=== PATIENT | male | born 1985 | race Caucasian/White ===

== ENCOUNTER 2022-09-14 14:01 | Emergency (ER) | payer OTHER, SELFPAY ==
[2022-09-14 14:05] VITALS: PULSE 85; RESP 16; TEMP 36.5; O2SAT 98
[2022-09-14 14:34] LABS: Add Manual Diff / Slide Review NO; Basophils Absolute Auto 0 /uL (0-100); Basophils Percent Auto 0.6 % (0-2); Eosinophils Absolute Auto 0 /uL (0-450); Eosinophils Percent Auto 0.6 % (2-4); Hemoglobin 14.6 g/dL (13.5-17.5); Lymphocytes Absolute Auto 1300 /uL (1100-4500); Lymphocytes Percent Auto 16.1 % (25-40); Mean Corpuscular HGB Conc 34.8 % (30-36); Mean Corpuscular Hemoglobin 30.7 PG (26-34); Monocytes Absolute Auto 700 /uL (0-900); Monocytes Percent Auto 8.5 % (3-14); Neutrophils Absolute Auto 5800 /uL (1500-7000); Neutrophils Percent Auto 74.2 % (50-75); Platelet Count 230 X10^3/uL (150-400); Red Blood Cell Count 4.77 X10^6/uL (4.5-5.9); Red Cell Distribution Width 13.3 % (11.6-14.8); White Blood Cell Count 7.8 X10^3/uL (4.5-11.0)
[2022-09-14 14:45] LABS: Alanine Aminotransferase 31 IU/L (<50); Albumin 4.8 g/dL (3.5-5.0); Albumin Globulin Ratio 1.3 (1.0-2.8); Alkaline Phosphatase 57 U/L (38-126); Aspartate Aminotransferase 35 IU/L (17-59); Blood Urea Nitrogen 15 mg/dL (9-20); Calcium 9.4 mg/dL (8.4-10.2); Carbon Dioxide 26 mmol/L (22-32); Chloride 102 mmol/L (98-107); Estimated Glomerular Filt Rate > 60 mL/min (>60); Globulin 3.6 g/dL (1.7-4.1); Glucose 95 mg/dL (70-100); HEMOLYSIS 16 (0-50); Lipase 82 U/L (23-300); Potassium 4.3 mmol/L (3.4-5.1); Sodium 138 mmol/L (137-145); Total Protein 8.4 g/dL (6.3-8.2)
[2022-09-14 15:50] LABS: Bacteria Urine None Seen; Culture Indicated Urine Cult Not Indicated; RBC Urine 1-5/HPF (0-5/HPF); WBC Urine None Seen (0-5/HPF)
--- NOTE | 2022-09-14 17:00 | DI.CT.S_ITS ---
PROCEDURE: CT KIDNEY URETER BLADDER (KUB) INDICATIONS: L flank pain eval for stone TECHNIQUE: Axial sections were acquired from the lung bases to the pubic symphysis. Coronal and sagittal reformats were performed. For radiation dose reduction, the following was used: automated exposure control, adjustment of mA and/or kV according to patient size. COMPARISON: The comparison exams may be incomplete at the time of preliminary interpretation due to PACS issues. FINDINGS: Image quality: Excellent. Lung bases: Unremarkable. Small hiatal hernia. Heart: No significant findings. URINARY: Right Kidney: There is a 1 mm nonobstructive stone in No stones or hydronephrosis. Right Ureter: No hydroureter. Left Kidney: No stones or hydronephrosis. There is a cortical scar in left kidney. Left Ureter: No hydroureter. Bladder: Normal wall thickness. No stones. ABDOMEN: Liver: Normal in size. Low-density nodules in liver are most likely cysts or hemangiomas. Gallbladder: Unremarkable. Biliary ducts: Unremarkable. Pancreas: Unremarkable. Spleen: Unremarkable. Adrenal Glands: Unremarkable. Stomach and Bowel: Stomach, small bowel loops, and colon are unremarkable. Peritoneum: No abnormal intraperitoneal fluid. No free air. Ventral Wall: No hernia. Abdominal Nodes: No enlarged retroperitoneal or mesenteric lymph nodes. Vessels: Aorta and inferior vena cava are normal in size. PELVIS: Pelvic Organs: Prostate is prominent in size. Pelvic Nodes: Unremarkable. Miscellaneous: No inguinal hernias are seen. Bones: Unremarkable. IMPRESSION: 1. No left renal stone or hydronephrosis. There is a cortical scar in left kidney. 2. A 1 mm nonobstructive stone in right kidney. No right renal hydronephrosis. 3. Suspect multiple hepatic cysts or hemangiomas. 4. Small hiatal hernia. The preliminary result was communicated to Dr. Dodge. Dictated by: Francy Lucia M.D. on 09/14/2022 at 17:47 Approved by: Francy Lucia M.D. on 09/15/2022 at 11:09
--- NOTE | 2022-09-14 17:00 | ED.GENADULT ---
HPI - General Adult General Chief complaint: Abdominal Pain Stated complaint: pain lt kidney feels like kidney stone Time Seen by Provider: 09/14/22 16:50 Source: patient Mode of arrival: Ambulatory History of Present Illness HPI narrative: Patient is a 37-year-old male. Has had a kidney stone in the past. This morning he started to have pain in his left flank that he states feels similar to his prior kidney stone but not as bad as what it has been. He did pass his prior stone on his own. He can not remember if he had a CT scan to definitively diagnose this. He denies any fevers. No nausea vomiting. No pain with urination. No skin rashes. Has not tried anything for his symptoms prior to arrival. Related Data Allergies Allergy/AdvReac Type Severity Reaction Status Date / Time No Known Drug Allergies Allergy Verified 09/14/22 14:08 Review of Systems Constitutional Constitutional: Reports system reviewed and no additional complaints, except as documented Cardiovascular Cardiovascular: Reports system reviewed and no additional complaints, except as documented Respiratory Respiratory: Reports system reviewed and no additional complaints, except as documented Gastrointestinal Gastrointestinal: Reports abdominal pain, Denies nausea and Denies vomiting Genitourinary Genitourinary: Reports system reviewed and no additional complaints, except as documented Integumentary/Breasts Skin/Breast: Reports system reviewed and no additional complaints, except as documented Patient History Medical History Kidney stones Social History lives independently: Yes Exam Initial Vital Signs Initial Vital Signs: Vital Signs Temperature 97.7 F 09/14/22 14:05 Pulse Rate 85 09/14/22 14:05 Respiratory Rate 16 09/14/22 14:05 Pulse Oximetry 98 09/14/22 14:05 Oxygen Delivery Method 09/14/22 14:05 HENMT Head: normal to inspection and normocephalic Resp Effort & Inspection: normal respiratory effort Auscultation: clear to auscultation bilaterally Cardio Rate: regular rate Rhythm: regular rhythm GI Inspection: normal to inspection and non-distended Palpation: soft and No tender Back/Spine/Pelvis Back: No CVA tenderness Skin General: no rashes or lesions noted Neuro General: patient alert, patient awake and moves all extremities Extrem General: normal to inspection and capillary refill normal Psych Appearance: grossly normal and well kempt Course Orders Ordered: ED Orders 09/14/22 14:16 Complete Blood Count AUTO DIFF Stat Comprehensive Metabolic Panel Stat Lipase Stat 09/14/22 15:25 Urine Microscopic Stat 09/14/22 17:00 CT kidney ureter bladder (KUB) Stat Discontinued Medications Ketorolac Tromethamine (Ketorolac 30 Mg/Ml Vial) 30 mg IV NOW ONE Stop: 09/14/22 18:27 Vital Signs Vital signs: Vital Signs - 8 hr 09/14/22 14:05 Temperature 97.7 F Pulse Rate 85 Respiratory Rate 16 Pulse Oximetry 98 Oxygen Delivery Method Room Air Medical Decision Making Lab Data Lab results reviewed: Yes I reviewed the patient's lab results. Result diagrams: 09/14/22 14:16 09/14/22 14:16 Labs: Lab Results 09/14/22 09/14/22 09/14/22 Range/Units 14:16 14:16 15:25 WBC 7.8 (4.5-11.0) X10^3/uL RBC 4.77 (4.5-5.9) X10^6/uL Hgb 14.6 (13.5-17.5) g/dL Hct 42.0 (41-53) % MCV 88.0 (80-100) fL MCH 30.7 (26-34) PG MCHC 34.8 (30-36) % RDW 13.3 (11.6-14.8) % Plt Count 230 (150-400) X10^3/uL Neut % (Auto) 74.2 (50-75) % Lymph % (Auto) 16.1 L (25-40) % [place] % (Auto) 8.5 (3-14) % Eos % (Auto) 0.6 L (2-4) % Baso % (Auto) 0.6 (0-2) % Neut # (Auto) 5800 (4809-2102) /uL Lymph # (Auto) 1300 (0576-8880) /uL [place] # (Auto) 700 (0-900) /uL Eos # (Auto) 0 (0-450) /uL Baso # (Auto) 0 (0-100) /uL Sodium 138 (137-145) mmol/L Potassium 4.3 (3.4-5.1) mmol/L Chloride 102 (98-107) mmol/L Carbon Dioxide 26 (22-32) mmol/L BUN 15 (9-20) mg/dL Creatinine 0.94 (0.66-1.25) mg/dL Estimated GFR > 60 (>60) mL/min BUN/Creatinine Ratio 16.0 (6-22) Glucose 95 (70-100) mg/dL Calcium 9.4 (8.4-10.2) mg/dL Total Bilirubin 1.0 (0.2-1.3) mg/dL AST 35 (17-59) IU/L ALT 31 (<50) IU/L Alkaline Phosphatase 57 (38-126) U/L Total Protein 8.4 H (6.3-8.2) g/dL Albumin 4.8 (3.5-5.0) g/dL Globulin 3.6 (1.7-4.1) g/dL Albumin/Globulin Ratio 1.3 (1.0-2.8) Lipase 82 (23-300) U/L Urine RBC 1-5/hpf (0-5/HPF) Urine WBC None seen (0-5/HPF) Urine Bacteria None seen (None) Ur Culture Indicated? Cult not indicated Urine Dip Bedside Urine Glucose Negative Bedside Urine Bilirubin - Negative Bedside Urine Ketone - Negative Urine Specific [place] 1.010 Bedside Urine Occult Blood +/- Bedside Urine pH 6 Bedside Urine Protein - Negative Bedside Urine Urobilinogen - Negative Bedside Urine Nitrite - Negative Bedside Urine Leukocytes - Negative Esterase Point of care testing: Urine Dip Bedside Urine Glucose Negative Bedside Urine Bilirubin - Negative Bedside Urine Ketone - Negative Urine Specific [place] 1.010 Bedside Urine Occult Blood +/- Bedside Urine pH 6 Bedside Urine Protein - Negative Bedside Urine Urobilinogen - Negative Bedside Urine Nitrite - Negative Bedside Urine Leukocytes - Negative Esterase Imaging Data CT scan - abdomen/pelvis: Radiologist's Impression: No acute pathology MDM Narrative Medical decision making narrative: Urinalysis today shows no signs of infection. No blood. Low suspicion for pyelonephritis. There was an issue with the radiology system and so received a call from the radiologist who stated that there were no left-sided renal stones. No other acute pathology. No indication for antibiotics. No skin changes over the area concerning for zoster. Discussed all this with the patient appears given a dose of Toradol. Will discharge home. He expressed understanding and agreement. Discharge Plan Departure Patient Disposition: Home Clinical Impression: Acute flank pain Instructions: DI for Flank Pain Activity Restrictions/Additional Instructions: The CT scan today does not show any signs of a kidney stone. There also no other surgical issues found on the CT scan as well. No other infectious issues. Recommend that you continue with Tylenol and ibuprofen. Return to the emergency department for any new or worsening symptoms. Referrals: Provider,Lee ROSE [Primary Care Provider] -
[2022-09-14] MEDS: KETOROLAC 30 MG/ML VIAL IV (18:37)
[2022-09-14 18:46] VITALS: BP 143/93; PULSE 73; RESP 18; O2SAT 99
== END 2022-09-14 18:46 | disposition home or self-care (01) ==
PROVIDERS: Emergency Provider Emergency Medicine
DX: R10.9 Unspecified abdominal pain (principal); Z87.442 Personal history of urinary calculi
CPT/HCPCS: 74176; 80053; 81003; 81015; 83690; 85025; 96374; 99284; J1885

== ENCOUNTER → 2024-03-06 07:05 | Outpatient (CLI) | payer OTHER, SELFPAY ==
--- NOTE | 2024-03-06 07:07 | DI.ECHO.S_ITS ---
[facility]+ [facility] : : [address] : : [place] : : [id number] : : Phone: [phone] Echocardiogram Report + + :Name: JEANIE MILLER Study Date: 03/06/2024 Height: 65 in : :Hospital ReadingLocation: Weight: 225 lb : : Gender: Male BSA: 2.1 m2 : :: 1985 Age: 38 yrs BP: 141/111 mmHg: :Reason For Study: CHEST PAIN : :Ordering Physician: ADELINA, : :CHANA Pemberton Performed By: Kait Benavidez : :Referring: CHANA GÓMEZ : + + Interpretation Summary The ejection fraction is estimated to be 55-60%. Diastolic parameters suggest probable normal left ventricular diastolic function and normal filling pressures. The right ventricle is normal in size and function. There is trace aortic regurgitation. Pulmonary artery pressures cannot be estimated because of the lack of a measurable TR jet velocity but the IVC suggests a CVP of around 3 mmHg. Procedure: A two-dimensional transthoracic echocardiogram with color flow and Doppler was performed. The study quality was technically adequate. There is no prior echocardiogram noted for this patient. The patient was in sinus rhythm with heart rates between 78-89 bpm during the exam. Left Ventricle: The left ventricle is normal in size and wall thickness. The ejection fraction is estimated to be 55-60%. Diastolic parameters suggest probable normal left ventricular diastolic function and normal filling pressures. Right Ventricle: The right ventricle is normal in size and function. Atria: The left atrial size is normal. Right atrial size is normal. There is no Doppler evidence for an interatrial shunt. Mitral Valve: The mitral valve is normal in structure and function. There is trace mitral regurgitation. Aortic Valve: The aortic valve opens well. The aortic valve is grossly normal. There is no aortic valve stenosis. There is trace aortic regurgitation. Tricuspid Valve: The tricuspid valve is normal in structure and function. There is trace tricuspid regurgitation. Pulmonary artery pressures cannot be estimated because of the lack of a measurable TR jet velocity but the IVC suggests a CVP of around 3 mmHg. Pulmonic Valve: The pulmonic valve is not well seen, but is grossly normal. There is a trace or physiologic amount of pulmonic regurgitation. Great Vessels: The aortic root is normal size. The dimensions of the ascending aorta are normal. The IVC is of normal diameter and collapses greater than 50% with a sniff. This suggests a low right atrial pressure of 3 mm Hg. Pericardium/ Pleura There is no pericardial effusion. There is no pleural effusion. MMode/2D Measurements & Calculations LVIDd: 4.6 cm LVOT diam: 2.3 cm LVIDs: 3.0 cm Ao root diam: 3.6 cm FS: 34.7 % asc Aorta Diam: 3.3 cm IVSd: 1.0 cm Ao Arch Diam (Prox Trans): 2.6 cm LVPWd: 0.87 cm LV tyler. diameter/BSA (cm/m^2): 2.2 LV sys. diameter/BSA (cm/m^2): 1.5 LA A2 area: 17.9 cm2 RA long axis: 4.6 cm LA A4 area: 13.2 cm2 RA area: 13.4 cm2 LA length (vol): 4.8 cm RA vol: 32.8 ml LA vol: 41.9 ml RA : 15.8 ml/m2 LA vol index: 20.2 ml/m2 IVC diam: 1.4 cm RVD1 (basal): 3.0 cm RVD2 (mid): 2.4 cm TAPSE: 1.9 cm Doppler Measurements & Calculations Ao V2 max: 121.0 cm/sec LVOT Max Oleg: 96.1 cm/sec Ao V2 mean: 85.1 cm/sec LV V1 max P.7 mmHg Ao max P.9 mmHg LV V1 VTI: 18.2 cm Ao mean P.2 mmHg LINDY(I,D): 3.4 cm2 Ao V2 VTI: 22.4 cm LINDY(V,D): 3.3 cm2 sev ratio: 0.81 LINDY indexed to BSA (cm^2/m^2): 1.6 MV E max oleg: 73.5 cm/sec TR max oleg: 216.1 cm/sec MV A max oleg: 62.2 cm/sec TR max P.7 mmHg MV E/A: 1.2 PA V2 max: 98.9 cm/sec Med Peak E' Oleg: 11.6 cm/sec PA V2 mean: 72.1 cm/sec E/E' med: 6.3 PA mean P.3 mmHg Lat Peak E' Oleg: 12.6 cm/sec PA pr(Accel): 32.8 mmHg E/E' lat: 5.8 E/e' average: 6.1 MV dec time: 0.18 sec SVLVOT): 75.6 ml Reading Physician:04:17 PM
--- NOTE | 2024-03-06 07:08 | DI.NM.S_ITS ---
PROCEDURE: NM EXERCISE TREADMILL NON NUC COMPARISON: None. INDICATIONS: Chest pain, unspecified FINDINGS: The patient exercised for 10 minutes and 29 seconds reaching 97% of maximum predicted heart rate. Appropriate BP response to exercise. 12.8 METs, MOR +14%. Atypical chest pain (described as twinge) at peak exercise. No diagnostic ST changes and no ectopy during exercise or recovery. IMPRESSION: Low risk, normal treadmill ECG only stress test with mildly reduced exercise tolerance (12.8 METs, MOR +14%). Atypical chest pain (described as twinge) at peak exercise. Dictated by: Trent Pelaez MD on 03/06/2024 at 13:39 Approved by: Trent Pelaez MD on 03/06/2024 at 13:41
== END ==
PROVIDERS: Referring Provider Internal Medicine Cardiovascular Disease; Visit Provider Internal Medicine Cardiovascular Disease
DX: R07.89 Other chest pain (principal)
CPT/HCPCS: 93017; 93306